=== PATIENT | female | born 1940 | race Caucasian/White ===

== ENCOUNTER 2018-09-12 08:30 | Emergency (ER) | payer MEDICARE, OTHER ==
[~2018-09-12] VITALS: Wt 60.0 kg
[~2018-09-12 08:30] MED LIST: BACI28.34 TOP
--- NOTE | 2018-09-12 10:21 | ERD ---
ER Documentation Chief Complaint Chief Complaint mech fall , has left knee pain HPI 77-year-old female presenting with bilateral knee pain after mechanical fall yesterday. Patient fell in the street when she was walking. Denies any numbness or tingling is able to ambulate however has abrasions and pain to her knees bilaterally. She has not taken any oral medications for pain. Medical history is hypertension. Surgical history denies. Social history denies. NKDA ROS All systems reviewed and are negative except as per history of present illness. Medications Home Meds Active Scripts Bacitracin* (Bacitracin Zinc Oint*) 28.35 Gm Oint, 1 APPLIC TOP BID, #1 TUB APPLI TO Prov:MEGAN TORREZ PA-C 09/12/18 Allergies Allergies: Coded Allergies: No Known Allergy (Unverified , 09/12/18) PMhx/Soc Medical and Surgical Hx: pt denies Surgical Hx Hx Alcohol Use: No Hx Substance Use: No Hx Tobacco Use: No Smoking Status: Never smoker FmHx Family History: No diabetes, No coronary disease, No other Physical Exam Vitals Vital Signs Date Temp Pulse Resp B/P (MAP) Pulse Ox O2 O2 Flow FiO2 Time Delivery Rate 09/12/18 98.1 63 18 145/63 99 08:32 (90) Physical Exam GENERAL: The patient is well-appearing, well-nourished, in no acute distress CHEST: Clear to auscultation bilaterally. There are no rales, wheezes or rhonchi. HEART: Regular rate and rhythm. No murmurs, clicks, rubs or gallops. ABDOMEN:Soft, nontender and nondistended. Good bowel sounds. No rebound or guarding. No gross peritonitis. No gross organomegaly or masses. EXTREMITIES: Equal pulses bilaterally. There is no peripheral clubbing, cyanosis or edema. No focal swelling or erythema. Full range of motion. Grossly neurovascularly intact. NEUROLOGIC: Alert and oriented. Cranial nerves II through XII intact. Motor strength in all 4 extremities with 5 out of 5 strength. Sensation grossly intact. Normal speech and gait. SKIN: Abrasions noted to bilateral knees with no surrounding erythema or purulence. No bleeding Procedures/MDM DIAGNOSTIC IMAGING REPORT Patient: COLT CHAVIRA : 1940 Age: 77 Sex: F [id number] DOS: 09/12/18 0852 Ordering MD: BRITTNY TORREZ PA-C Location: [facility] Room/Bed: PROCEDURE: XR Knees. CLINICAL INDICATION: Bilateral knee pain. TECHNIQUE: Total of six views. Frontal, oblique, and lateral views of both knees. COMPARISON: No prior study is available for comparison. FINDINGS: There is no fracture or dislocation. The soft tissues are normal. There are mild degenerative changes of the right medial knee compartment with associated marginal osteophytes. There is no lytic or blastic lesion. There is no radiopaque foreign body. IMPRESSION: No acute fracture or subluxation. There are mild degenerative changes of the right medial knee compartment with associated marginal osteophytes. ER Course: Abrasions is cleaned and bandages applied. MDM: 77-year-old female presenting with knee pain. Patient had a mechanical fall yesterday but I have low suspicion for acute fracture dislocations of her knees. 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 I have low suspicion for infectious process. Patient is discharged and recommended to apply warm compresses to the affected area. Patient is told symptoms change or worsen to return immediately to the ER. All questions answered at discharge Departure Diagnosis: Primary Impression: Knee pain Condition: Stable Patient Instructions: Contusion, Lower Extremity Referrals: [facility] YOU HAVE RECEIVED A MEDICAL SCREENING EXAM AND THE RESULTS INDICATE THAT YOU DO NOT HAVE A CONDITION THAT REQUIRES URGENT TREATMENT IN THE EMERGENCY DEPARTMENT. FURTHER EVALUATION AND TREATMENT OF YOUR CONDITION CAN WAIT UNTIL YOU ARE SEEN IN YOUR DOCTORS OFFICE WITHIN THE NEXT 1-2 DAYS. IT IS YOUR RESPONSIBILITY TO MAKE AN APPOINTMENT FOR FOLOW-UP CARE. IF YOU HAVE A PRIMARY DOCTOR --you should call your primary doctor and schedule an appointment IF YOU DO NOT HAVE A PRIMARY DOCTOR YOU CAN CALL OUR PHYSICIAN REFERRAL HOTLINE AT IF YOU CAN NOT AFFORD TO SEE A PHYSICIAN YOU CAN CHOSE FROM THE FOLLOWING [facility] [address] [facility]. [facility] [address] [facility] [address] [facility] [address] [facility] [facility] [address] [facility]. [facility] [address] Additional Instructions: FOLLOW UP WITH YOUR PRIMARY CARE PHYSICIAN TOMORROW.Return to this facility if you are not improving as expected. MEGAN TORREZ PA-C Sep 12, 2018 10:21
== END 2018-09-12 09:47 | disposition home or self-care (01) ==
LOC: FTE 08:30
DX: S90.512A Abrasion, left ankle, initial encounter (principal); S90.511A Abrasion, right ankle, initial encounter; I10 Essential (primary) hypertension; W18.39XA Other fall on same level, initial encounter; Y92.410 Unspecified street and highway as the place of occurrence of the external cause